=== PATIENT | male | born 1990 | race Native Hawaiian/Other Pacific Islander ===

== ENCOUNTER 2016-08-28 13:22 | Emergency (ER) | payer OTHER ==
[~2016-08-28] VITALS: Ht 182.9 cm; Wt 115.0 kg
[~2016-08-28 13:22] MED LIST: DICL75TA PO; FLUT1SPR5 EACH NARE; VENTAER INH
[2016-08-28 13:24] VITALS: BP 126/83; PULSE 83; RESP 15; TEMP 98.3; O2SAT 99
--- NOTE | 2016-08-28 13:29 | PD ---
Physical Exam Date Seen by Provider: August 28, 2016 Time Seen by Provider: 13:27 Narrative 26 yo male here for abdominal pain, nausea, vomit and diarrhea since early this morning. Cannot keep anything down. No recent travel. Pain in abdomen is cramping 08/08. No blood. Vitals sign stable. Patient awaiting bed placement. Data Data Last Documented VS Vital Signs Date Time Temp Pulse Resp B/P Pulse Ox O2 Delivery O2 Flow Rate FiO2 08/28/16 13:24 98.3 83 15 126/83 99 MDM Medical Record Reviewed: Yes Supervised Visit with OLVIN: Lencho Abel August 28, 2016 13:29
[2016-08-28] MEDS ORDERED: SODIUM CHLOR 0.9% 1000 ML INJ 1,000 ML IV SCH (14:31)
--- NOTE | 2016-08-28 14:33 | PD ---
HPI Chief Complaint: GI Complaint Time Seen by Provider: 14:32 Travel History International Travel<30 days: No Contact w/Intl Traveler<30days: No Traveled to known affect area: No History of Present Illness HPI 26-year-old male presents to the emergency department for evaluation of nausea, vomiting, diarrhea and abdominal pain that began this morning at about 6 AM. States that he's had about 4 episodes of nonbloody nonbilious emesis. States he 's had several episodes of loose watery stool as well. Reports his pain is in the epigastric region and describes it as a "churning." He denies any fever, chills, chest pain, shortness of breath, cough or cold symptoms, dysuria, hematuria, lightheadedness. He denies any recent travel or sick contacts. Denies any prior abdominal surgeries. Denies alcohol or drug use. No other complaints. PFSH Past Medical History Medical History: Denies Significant Hx Diminished Hearing: No Tetanus Vaccination: Unknown Influenza Vaccination: No ?: Not Past Surgical History Surgical History: No Previous Surgery Social History Alcohol Use: No Tobacco Use: Yes (/2 ppd) Substance Use: No Allergies-Medications (Allergen,Severity, Reaction): Coded Allergies: No Known Allergies (Unverified , 03/28/16) Reported Meds & Prescriptions Reported Meds & Active Scripts Active No Active Prescriptions or Reported Medications Review of Systems Except as stated in HPI: all other systems reviewed are Neg Physical Exam Narrative GENERAL: Well-nourished and well-developed pleasant male patient in no acute distress who is nontoxic appearing. SKIN: Warm and dry. HEAD: Normocephalic and atraumatic. EYES: No injection, drainage, or hyphema noted. PERRLA. EOMI. ENT: No nasal drainage noted. Oropharynx is clear. NECK: Supple and the trachea is midline. CARDIOVASCULAR: Regular rate and rhythm. RESPIRATORY: Breath sounds are equal bilaterally with no accessory muscle use, wheezing, rhonchi, or crackles. GASTROINTESTINAL: Mild epigastric tenderness to palpation. Negative McBurney's point. Negative Shell's sign. Abdomen is soft and nondistended. No rebound tenderness or guarding. MUSCULOSKELETAL: No obvious deformities, swelling, cyanosis, or ecchymosis is present throughout the upper and lower extremities. Patient has full range of motion without any signs of neurovascular compromise. NEUROLOGICAL: Awake, alert, and oriented. Normal speech and gait. Cranial nerves are grossly intact. Data Data Last Documented VS Vital Signs Date Time Temp Pulse Resp B/P Pulse Ox O2 Delivery O2 Flow Rate FiO2 08/28/16 14:34 100 Room Air 08/28/16 13:24 98.3 83 15 126/83 Orders Complete Blood Count With Diff (08/28/16 14:31) Comprehensive Metabolic Panel (08/28/16 14:31) Lipase (08/28/16 14:31) Iv Access Insert/Monitor (08/28/16 14:31) Ecg Monitoring (08/28/16 14:31) Oximetry (08/28/16 14:31) Ondansetron Inj (Zofran Inj) (08/28/16 14:45) Sodium Chlor 0.9% 1000 Ml Inj (Ns 1000 M (08/28/16 14:31) Sodium Chloride 0.9% Flush (Ns Flush) (08/28/16 14:45) Labs Laboratory Tests Test 08/28/16 14:41 White Blood Count 11.7 TH/MM3 Red Blood Count 6.12 MIL/MM3 Hemoglobin 14.7 GM/DL Hematocrit 46.5 % Mean Corpuscular Volume 76.0 FL Mean Corpuscular Hemoglobin 24.1 PG Mean Corpuscular Hemoglobin 31.7 % Concent Red Cell Distribution Width 14.4 % Platelet Count 299 TH/MM3 Mean Platelet Volume 7.7 FL Neutrophils (%) (Auto) 81.6 % Lymphocytes (%) (Auto) 14.0 % Monocytes (%) (Auto) 3.9 % Eosinophils (%) (Auto) 0.2 % Basophils (%) (Auto) 0.3 % Neutrophils # (Auto) 9.6 TH/MM3 Lymphocytes # (Auto) 1.6 TH/MM3 Monocytes # (Auto) 0.5 TH/MM3 Eosinophils # (Auto) 0.0 TH/MM3 Basophils # (Auto) 0.0 TH/MM3 CBC Comment DIFF FINAL Differential Comment Sodium Level 138 MEQ/L Potassium Level 4.2 MEQ/L Chloride Level 103 MEQ/L Carbon Dioxide Level 27.8 MEQ/L Anion Gap 7 MEQ/L Blood Urea Nitrogen 21 MG/DL Creatinine 0.93 MG/DL Estimat Glomerular Filtration 99 ML/MIN Rate Random Glucose 96 MG/DL Calcium Level 9.5 MG/DL Total Bilirubin 0.4 MG/DL Aspartate Amino Transf 65 U/L (AST/SGOT) Alanine Aminotransferase 85 U/L (ALT/SGPT) Alkaline Phosphatase 60 U/L Total Protein 8.2 GM/DL Albumin 4.1 GM/DL Lipase 133 U/L [facility] Medical Decision Making Medical Screen Exam Complete: Yes Emergency Medical Condition: Yes Differential Diagnosis Gastroenteritis versus gastritis versus viral illness versus electrolyte abnormality versus dehydration Narrative Course 26-year-old male presents to the emergency department for evaluation of nausea, vomiting, diarrhea and abdominal pain for 1 day. Patient is afebrile, vital signs are stable. Abdominal examination is essentially benign. Patient was well overall. IV access is obtained, labs were drawn and sent. Patient is administered IV fluids and Zofran. CBC shows slightly elevated white blood cell count but is otherwise unremarkable for any acute abnormalities. CMP shows slightly elevated LFTs, otherwise unremarkable. Patient appears well overall, labs are reassuring. This is likely viral gastroenteritis. Discussed supportive care with the patient and he'll be discharged with Zofran. Advised follow-up with his PCP as needed. Patient verbalizes understanding and agreement with treatment plan. I discussed the case with my attending physician Dr. Abdullahi who is aware of the patients history, physical examination findings, and treatment plan. Diagnosis Primary Impression: Gastroenteritis Referrals: Primary Care Physician Patient Instructions: Gastroenteritis (ED), General Instructions Additional Instructions: Eat bland foods such as bananas, rice, applesauce and toast. Take medication as prescribed. Follow-up with your Primary Care Physician. Return to the ED for any acute worsening of symptoms. Med/Other Pt SpecificInfo: Prescription(s) given Scripts Ondansetron (Zofran)4 Mg Tab4 Mg PO Q6HR PRN (NAUSEA OR VOMITING) #10 TAB Ref 0 Prov:Dot Abdullahi MD 08/28/16 Disposition: 01 DISCHARGE HOME Condition: Stable Yasmeen Alvarado August 28, 2016 14:32
[2016-08-28 14:34] VITALS: O2SAT 100
[2016-08-28] MEDS ORDERED: SODIUM CHLORIDE 0.9% FLUSH 10 ML FLUSH IV FLUSH PRN (14:45)
[2016-08-28] MEDS ORDERED: ONDANSETRON HCL 4 MG/2 ML VIAL IVP ONE (14:45)
[2016-08-28 14:54] LABS: AUTOMATED NEUTROPHIL # 9.6 TH/MM3 (1.8-7.7); BASOPHIL % 0.3 % (0.0-2.0); EOSINOPHIL % 0.2 % (0.0-4.0); HEMATOCRIT 46.5 % (39.0-51.0); HEMO FLAGS DIFF FINAL; LYMPHOCYTE # 1.6 TH/MM3 (1.0-4.8); MEAN CORPUSCULAR HEMOGLOBIN 24.1 PG (27.0-34.0); MEAN CORPUSCULAR HGB CONC 31.7 % (32.0-36.0); MONO % 3.9 % (0.0-8.0); NEUT % 81.6 % (16.0-70.0); PLATELET COUNT 299 TH/MM3 (150-450); RED BLOOD COUNT 6.12 MIL/MM3 (4.50-5.90); RED CELL DISTRIBUTION WIDTH 14.4 % (11.6-17.2); WHITE BLOOD COUNT 11.7 TH/MM3 (4.0-11.0)
[2016-08-28 15:16] LABS: ALT (GPT) 85 U/L (12-78); ANION GAP 7 MEQ/L (5-15); AST (GOT) 65 U/L (15-37); BICARBONATE 27.8 MEQ/L (21.0-32.0); BLOOD UREA NITROGEN 21 MG/DL (7-18); CHLORIDE 103 MEQ/L (98-107); GLOMERULAR FILTRATION RATE 99 ML/MIN (>89); POTASSIUM 4.2 MEQ/L (3.5-5.1); SODIUM (NA) 138 MEQ/L (136-145)
[2016-08-28 15:19] LABS: ALKALINE PHOSPHATASE 60 U/L (45-117); TOTAL BILIRUBIN ADULT 0.4 MG/DL (0.2-1.0)
[2016-08-28] MEDS ORDERED: ZOFR4TAB PO (15:23)
--- NOTE | 2016-08-28 15:23 | PD ---
Data Data Last Documented VS Vital Signs Date Time Temp Pulse Resp B/P Pulse Ox O2 Delivery O2 Flow Rate FiO2 08/28/16 14:34 100 Room Air 08/28/16 13:24 98.3 83 15 126/83 Orders Complete Blood Count With Diff (08/28/16 14:31) Comprehensive Metabolic Panel (08/28/16 14:31) Lipase (08/28/16 14:31) Iv Access Insert/Monitor (08/28/16 14:31) Ecg Monitoring (08/28/16 14:31) Oximetry (08/28/16 14:31) Ondansetron Inj (Zofran Inj) (08/28/16 14:45) Sodium Chlor 0.9% 1000 Ml Inj (Ns 1000 M (08/28/16 14:31) Sodium Chloride 0.9% Flush (Ns Flush) (08/28/16 14:45) Labs Laboratory Tests Test 08/28/16 14:41 White Blood Count 11.7 TH/MM3 Red Blood Count 6.12 MIL/MM3 Hemoglobin 14.7 GM/DL Hematocrit 46.5 % Mean Corpuscular Volume 76.0 FL Mean Corpuscular Hemoglobin 24.1 PG Mean Corpuscular Hemoglobin 31.7 % Concent Red Cell Distribution Width 14.4 % Platelet Count 299 TH/MM3 Mean Platelet Volume 7.7 FL Neutrophils (%) (Auto) 81.6 % Lymphocytes (%) (Auto) 14.0 % Monocytes (%) (Auto) 3.9 % Eosinophils (%) (Auto) 0.2 % Basophils (%) (Auto) 0.3 % Neutrophils # (Auto) 9.6 TH/MM3 Lymphocytes # (Auto) 1.6 TH/MM3 Monocytes # (Auto) 0.5 TH/MM3 Eosinophils # (Auto) 0.0 TH/MM3 Basophils # (Auto) 0.0 TH/MM3 CBC Comment DIFF FINAL Differential Comment Sodium Level 138 MEQ/L Potassium Level 4.2 MEQ/L Chloride Level 103 MEQ/L Carbon Dioxide Level 27.8 MEQ/L Anion Gap 7 MEQ/L Blood Urea Nitrogen 21 MG/DL Creatinine 0.93 MG/DL Estimat Glomerular Filtration 99 ML/MIN Rate Random Glucose 96 MG/DL Calcium Level 9.5 MG/DL Total Bilirubin 0.4 MG/DL Aspartate Amino Transf 65 U/L (AST/SGOT) Alanine Aminotransferase 85 U/L (ALT/SGPT) Alkaline Phosphatase 60 U/L Total Protein 8.2 GM/DL Albumin 4.1 GM/DL Lipase 133 U/L MDM Supervised Visit with OLVIN: Yes Narrative Course I, Dr. Abdullahi, have reviewed the advance practice practioner's documentation and am in agreement, met with the patient face to face, made the diagnosis, and the medical decision making was done by me. *My assessment and Findings: 26-year-old male with nausea vomiting and diarrhea and diffuse abdominal pain primarily epigastric since approximately 6 AM. No hematemesis or hematochezia. Abdominal examination is benign on my evaluation. Differential includes gastroenteritis, food poisoning and less likely peritoneal pathology given her overall benign abdominal examination. Patient treated symptomatically, laboratory workup unremarkable. Patient reassured and discharged home. Referrals: Primary Care Physician Patient Instructions: General Instructions, Gastroenteritis (ED) Additional Instruction: Eat bland foods such as bananas, rice, applesauce and toast. Take medication as prescribed. Follow-up with your Primary Care Physician. Return to the ED for any acute worsening of symptoms. Scripts No Active Prescriptions or Reported Meds Disposition: 01 DISCHARGE HOME Condition: Stable Dot Abdullahi MD August 28, 2016 15:23
== END 2016-08-28 15:56 | disposition home or self-care (01) ==
LOC: NEPD 13:22
DX: K52.9 Noninfective gastroenteritis and colitis, unspecified (principal); F17.200 Nicotine dependence, unspecified, uncomplicated
CPT/HCPCS: 80053; 83690; 85025; 96361; 96374; 99284; J2405; J7030

== ENCOUNTER 2016-11-28 22:22 | Emergency (ER) | payer OTHER ==
[~2016-11-28] VITALS: Ht 180.3 cm; Wt 115.5 kg
[~2016-11-28 22:22] MED LIST changes: -DICL75TA PO; -FLUT1SPR5 EACH NARE; -VENTAER INH; +ZOFR4TAB PO
[2016-11-28 22:23] VITALS: BP 160/95; PULSE 83; RESP 16; TEMP 97.8; O2SAT 98
--- NOTE | 2016-11-28 22:35 | PD ---
Physical Exam Date Seen by Provider: Nov 28, 2016 Time Seen by Provider: 22:34 Narrative 26 yo male that presents to the ED for HBP and headache. Has had this for today. No medical issues. pain to back of head. Vitals stable in triage. Awaiting bed placement Data Data Last Documented VS Vital Signs Date Time Temp Pulse Resp B/P (MAP) Pulse Ox O2 Delivery O2 Flow Rate FiO2 11/28/16 22:23 97.8 83 16 160/95 (116) 98 Room Air [facility] Medical Record Reviewed: Yes Supervised Visit with OLVIN: Lencho Abel Nov 28, 2016 22:35
[2016-11-28 23:47] VITALS: BP 137/88; PULSE 70; RESP 18; O2SAT 100
[2016-11-29] MEDS ORDERED: KETOROLAC TROMETHAMINE 30 MG/ML (IVP) VIAL IVP ONE (00:15)
--- NOTE | 2016-11-29 00:17 | PD ---
HPI Chief Complaint: Headache Time Seen by Provider: 00:12 Travel History International Travel<30 days: Yes Contact w/Intl Traveler<30days: Yes Name of Country Traveled to: [facility] Traveled to known affect area: No History of Present Illness HPI This is a 26-year-old male who presents for evaluation. He reports that for the past 3 weeks he has been experiencing occasional left sided occipital headaches. He describes it as a dull aching pain in the left occiput which is worse in the mornings, typically resolve spontaneously or with the use of Tylenol. Currently he is experiencing a 2 out of 10 pain. Because of the headache he has been checking his blood pressure occasionally and he notes that it is high. He reports that on average over the past few weeks his systolic blood pressure has been 140-150 and his diastolic blood pressure is been 100. He has never been diagnosed with hypertension. He has no primary care physician. He recently moved back here from [facility] for college. He is otherwise without complaint. He denies blurred vision, nausea or vomiting, neck stiffness, rash, fevers or chills, cough, congestion, sore throat. He has no significant past medical history. He does endorse tobacco use. Denies drug/ alcohol use. No other complaints. [facility] Past Medical History Diminished Hearing: No Past Surgical History Surgical History: No Previous Surgery Social History Alcohol Use: No Tobacco Use: Yes (1/2 ppd) Substance Use: No Allergies-Medications (Allergen,Severity, Reaction): Coded Allergies: No Known Allergies (Unverified , 03/28/16) Reported Meds & Prescriptions Reported Meds & Active Scripts Active No Active Prescriptions or Reported Medications Review of Systems Except as stated in HPI: all other systems reviewed are Neg Physical Exam Narrative GENERAL: This is a well-developed well-nourished male in no acute distress. His blood pressure is 137/88. His BMI is 35.5 SKIN: Warm and dry. HEAD: Atraumatic. Normocephalic. EYES: Pupils equal and round. No scleral icterus. No injection or drainage. ENT: No nasal bleeding or discharge. Mucous membranes pink and moist. NECK: Trachea midline. No JVD. CARDIOVASCULAR: Regular rate and rhythm. No murmur appreciated. RESPIRATORY: No accessory muscle use. Clear to auscultation. Breath sounds equal bilaterally. GASTROINTESTINAL: Abdomen soft, non-tender, nondistended. Hepatic and splenic margins not palpable. MUSCULOSKELETAL: No obvious deformities. No clubbing. No cyanosis. No edema. NEUROLOGICAL: Awake and alert. No obvious cranial nerve deficits. Motor grossly within normal limits. Normal speech. PSYCHIATRIC: Appropriate mood and affect; insight and judgment normal. Data Data Last Documented VS Vital Signs Date Time Temp Pulse Resp B/P (MAP) Pulse Ox O2 Delivery O2 Flow Rate FiO2 11/28/16 23:47 70 18 137/88 (104) 100 Room Air 11/28/16 22:23 97.8 Orders Orders Complete Blood Count With Diff (11/29/16 00:06) Comprehensive Metabolic Panel (11/29/16 00:06) Ct Brain W/O Iv Contrast(Rout) (11/29/16 00:06) Iv Access Insert/Monitor (11/29/16 00:06) Ketorolac Inj (Toradol Inj) (11/29/16 00:15) Labs Laboratory Tests Test 11/29/16 00:20 White Blood Count 9.2 TH/MM3 Red Blood Count 6.00 MIL/MM3 Hemoglobin 14.9 GM/DL Hematocrit 46.3 % Mean Corpuscular Volume 77.3 FL Mean Corpuscular Hemoglobin 24.9 PG Mean Corpuscular Hemoglobin Concent 32.2 % Red Cell Distribution Width 13.9 % Platelet Count 325 TH/MM3 Mean Platelet Volume 7.1 FL Neutrophils (%) (Auto) 56.1 % Lymphocytes (%) (Auto) 34.9 % Monocytes (%) (Auto) 7.3 % Eosinophils (%) (Auto) 1.0 % Basophils (%) (Auto) 0.7 % Neutrophils # (Auto) 5.1 TH/MM3 Lymphocytes # (Auto) 3.2 TH/MM3 Monocytes # (Auto) 0.7 TH/MM3 Eosinophils # (Auto) 0.1 TH/MM3 Basophils # (Auto) 0.1 TH/MM3 CBC Comment DIFF FINAL Differential Comment Blood Urea Nitrogen 26 MG/DL Creatinine 1.02 MG/DL Random Glucose 75 MG/DL Total Protein 8.3 GM/DL Albumin 4.1 GM/DL Calcium Level 9.4 MG/DL Alkaline Phosphatase 57 U/L Aspartate Amino Transf (AST/SGOT) 18 U/L Alanine Aminotransferase (ALT/SGPT) 39 U/L Total Bilirubin 0.5 MG/DL Sodium Level 139 MEQ/L Potassium Level 3.9 MEQ/L Chloride Level 104 MEQ/L Carbon Dioxide Level 28.2 MEQ/L Anion Gap 7 MEQ/L Estimat Glomerular Filtration Rate 89 ML/MIN MDM Medical Decision Making Medical Screen Exam Complete: Yes Emergency Medical Condition: Yes Medical Record Reviewed: Yes Differential Diagnosis Essential hypertension versus hypertensive urgency versus subarachnoid hemorrhage versus mass versus tension headache Narrative Course 26-year-old male who has been experiencing a mild left occipital headache intermittently for the past few weeks, typically resolves with Tylenol, currently headache 2 out of 10. He has no neurologic deficits and no other neurologic complaints. He notes that his blood pressure has been 140-150 systolic and diastolic has been 100 which surprised him. He is mildly obese with a BMI of 35.5, he endorses tobacco use. He is otherwise a healthy 26-year- old male. He would likely benefit from nonpharmacologic therapy for his mild hypertension with lifestyle changes such as increasing aerobic exercise, cessation of tobacco use, and this was discussed in detail with the patient. It was recommended that he keep a journal of his blood pressure readings and follow closely with primary care physician. Basic lab work, CT of the brain was ordered. He was given IV Toradol. Lab work and imaging studies are unremarkable. The patient feels excellent after the administration of Toradol. He is stable for discharge. Diagnosis Primary Impression: Headache Qualified Codes: R51 - Headache Additional Impression: Elevated blood pressure reading Additional Instructions: Actionable lifestyle interventions to lower your blood pressure- DASH diet, increasing aerobic activity, gradual weight loss, tobacco cessation. Monitor your blood pressure in a regular basis and keep a journal of the readings. Follow-up with primary care physician. Return for any emergent medical conditions. Med/Other Pt SpecificInfo: No Change to Meds Scripts No Active Prescriptions or Reported Meds Disposition: DISCHARGE HOME Condition: Stable Sebastian Mullins Nov 29, 2016 00:17
[2016-11-29 00:31] LABS: AUTOMATED NEUTROPHIL # 5.1 TH/MM3 (1.8-7.7); BASOPHIL # 0.1 TH/MM3 (0-0.2); BASOPHIL % 0.7 % (0.0-2.0); EOSINOPHIL # 0.1 TH/MM3 (0-0.4); HEMATOCRIT 46.3 % (39.0-51.0); HEMO FLAGS DIFF FINAL; LYMPH % 34.9 % (9.0-44.0); LYMPHOCYTE # 3.2 TH/MM3 (1.0-4.8); MEAN CELL VOLUME 77.3 FL (80.0-100.0); MEAN CORPUSCULAR HEMOGLOBIN 24.9 PG (27.0-34.0); MEAN CORPUSCULAR HGB CONC 32.2 % (32.0-36.0); MONO % 7.3 % (0.0-8.0); NEUT % 56.1 % (16.0-70.0); PLATELET COUNT 325 TH/MM3 (150-450); RED CELL DISTRIBUTION WIDTH 13.9 % (11.6-17.2); WHITE BLOOD COUNT 9.2 TH/MM3 (4.0-11.0)
--- NOTE | 2016-11-29 00:43 | RADRPT ---
EXAM DATE/TIME: 11/29/2016 00:29 [place] COMPARISON: No previous studies available for comparison. INDICATIONS : Headaches with high blood pressure. RADIATION DOSE: 37.89 CTDIvol (mGy) MEDICAL HISTORY : None SURGICAL HISTORY : None. ENCOUNTER: Initial ACUITY: 1 day PAIN SCALE: 4/10 LOCATION: Bilateral cranial TECHNIQUE: Multiple contiguous axial images were obtained of the head. Using automated exposure control and adj ustment of the mA and/or kV according to patient size, radiation dose was kept as low as reasonably a chievable to obtain optimal diagnostic quality images. DICOM format image data is available electro nically for review and comparison. FINDINGS: CEREBRUM: The ventricles are normal for age. No evidence of midline shift, mass lesion, hemorrhage or acute in farction. No extra-axial fluid collections are seen. POSTERIOR FOSSA: The cerebellum and brainstem are intact. The 4th ventricle is midline. The cerebellopontine angle i s unremarkable. EXTRACRANIAL: The visualized portion of the orbits is intact. SKULL: The calvaria is intact. No evidence of skull fracture. CONCLUSION: Normal examination. Cristofer Deleon MD on November 29, 2016 at 0:39 Board Certified Radiologist. This report was verified electronically.
[2016-11-29 00:49] LABS: ALT (GPT) 39 U/L (12-78); ANION GAP 7 MEQ/L (5-15); AST (GOT) 18 U/L (15-37); BICARBONATE 28.2 MEQ/L (21.0-32.0); BLOOD UREA NITROGEN 26 MG/DL (7-18); CHLORIDE 104 MEQ/L (98-107); GLOMERULAR FILTRATION RATE 89 ML/MIN (>89); POTASSIUM 3.9 MEQ/L (3.5-5.1); SODIUM (NA) 139 MEQ/L (136-145)
[2016-11-29 00:50] LABS: ALKALINE PHOSPHATASE 57 U/L (45-117); TOTAL BILIRUBIN ADULT 0.5 MG/DL (0.2-1.0)
[2016-11-29 01:28] VITALS: RESP 16
== END 2016-11-29 01:43 | disposition home or self-care (01) ==
LOC: NEPD 22:22
DX: R51 Headache (principal); R03.0 Elevated blood-pressure reading, without diagnosis of hypertension; E66.9 Obesity, unspecified; F17.200 Nicotine dependence, unspecified, uncomplicated; Z68.35 Body mass index [BMI] 35.0-35.9, adult
CPT/HCPCS: 70450; 80053; 85025; 96374; 99285; J1885

== ENCOUNTER 2017-04-30 17:17 | Emergency (ER) | payer OTHER ==
[2017-04-30 17:19] VITALS: BP 136/103; PULSE 75; RESP 17; TEMP 98; O2SAT 98
[2017-04-30] MEDS ORDERED: ROBA750T PO (18:35)
[2017-04-30] MEDS ORDERED: IBUP1TAB7 PO (18:35)
--- NOTE | 2017-04-30 18:37 | PD ---
HPI Chief Complaint: Headache Time Seen by Provider: 18:06 Travel History International Travel<30 days: Yes Contact w/Intl Traveler<30days: Yes Name of Country Traveled to: [facility] Traveled to known affect area: No History of Present Illness HPI This is a 26-year-old male here with left posterior headache 4 days. Patient reports the pain was gradual in onset, dull/aching, similar to previous headache he had last year. Symptoms improved with Tylenol but then return in 4- 5 hours. Denies fever, visual changes, neck pain, rash, nausea or vomiting. No injury or trauma. Symptom severity is mild. No aggravating factors. PFSH Past Medical History Medical History: Denies Significant Hx Diminished Hearing: No Tetanus Vaccination: < 5 Years Social History Alcohol Use: No Tobacco Use: Yes (04/02 ppd) Substance Use: No Allergies-Medications (Allergen,Severity, Reaction): Coded Allergies: No Known Allergies (Unverified Adverse Reaction, Unknown, 04/30/17) Reported Meds & Prescriptions Reported Meds & Active Scripts Active No Active Prescriptions or Reported Medications Review of Systems Except as stated in HPI: all other systems reviewed are Neg General / Constitutional: No: Fever Eyes: No: Visual changes HENT: Positive: Headaches Cardiovascular: No: Chest Pain or Discomfort Respiratory: No: Shortness of Breath Gastrointestinal: No: Abdominal Pain Genitourinary: No: Dysuria Physical Exam Narrative GENERAL: Alert and well-appearing 26-year-old male SKIN: Warm and dry. HEAD: Normocephalic. + Tenderness and muscle spasm to the left occipitalis muscle. Patient reports the headache is really solved when this muscle is massaged. EYES: Pupils equal, round, reactive to light. No scleral icterus. No injection or drainage. NECK: Supple, trachea midline. No lymphadenopathy. No meningismus. CARDIOVASCULAR: Regular rate and rhythm RESPIRATORY: Breath sounds equal bilaterally. No accessory muscle use. GASTROINTESTINAL: Abdomen soft, non-tender, nondistended. NEUROLOGICAL: Awake and alert. Cranial nerves II through XII intact. Motor and sensory grossly within normal limits. Five out of 5 muscle strength in all muscle groups. Normal speech. Data Data Last Documented VS Vital Signs Date Time Temp Pulse Resp B/P (MAP) Pulse Ox O2 Delivery O2 Flow Rate FiO2 04/30/17 17:19 98.0 75 17 136/103 (114) 98 MDM Medical Decision Making Medical Screen Exam Complete: Yes Emergency Medical Condition: Yes Differential Diagnosis Tension headache, migraine headache, cluster headache Narrative Course This is a 26-year-old male here with a tension type headache and left occipitalis muscle tenderness. He has a normal neurologic exam. Patient be treated for tension headache. Diagnosis Primary Impression: Tension headache Referrals: Primary Care Physician Additional Instructions: Take the medications as prescribed. Stay well hydrated by drinking plenty of fluid. Return if he developed new or worsening symptoms Scripts Methocarbamol (Robaxin) 750 Mg Tab 750 MG PO TID for Muscle Spasm, #12 TAB 0 Refills Prov: Lenore Marc 04/30/17 Ibuprofen (Ibuprofen) 800 Mg Tab 800 MG PO Q6HR Y for PAIN, #40 TAB 0 Refills Prov: Lenore Marc 04/30/17 Disposition: 01 DISCHARGE HOME Condition: Stable Lenore Marc Apr 30, 2017 18:37
== END 2017-04-30 19:00 | disposition home or self-care (01) ==
LOC: NEPK 17:17
DX: G44.209 Tension-type headache, unspecified, not intractable (principal); F17.200 Nicotine dependence, unspecified, uncomplicated
CPT/HCPCS: 99283